=== PATIENT | female | born 1960 | race Two or more races ===

== ENCOUNTER → 2017-11-25 | Outpatient (CLI) | payer BC ==
--- NOTE | 2017-11-25 13:11 | RAD ---
EXAM: Bilateral calcanei, 2 views. HISTORY: Pain. COMPARISON: None. FINDINGS: Frontal and lateral views of both calcanei are obtained. There is no fracture, dislocation or subluxation. There are small left and right plantar spurs. IMPRESSION: Small left greater than right plantar spurs. Electronically signed by: Rosa Mccloud MD (11/25/2017 1:07 PM) [facility]
== END | disposition home or self-care (01) ==
LOC: DXRAD 10:47
PROVIDERS: ATTEND Physician Assistant Medical
DX: M77.51 Other enthesopathy of right foot and ankle (principal)
CPT/HCPCS: 73650

== ENCOUNTER → 2018-03-02 | Outpatient (CLI) | payer BC ==
[~2018-03-02] MED LIST: IOHEXOL 240 MG/ML 50ML VIAL. ONE
[2018-03-02] MEDS: IOHEXOL 300 MG/ML 75 ML VIAL. IV ONE (15:30)
[2018-03-02] MEDS: IOHEXOL 240 MG/ML 50ML VIAL. PO ONE (15:36)
--- NOTE | 2018-03-02 17:02 | RAD ---
CT abdomen and pelvis with contrast 03/02/2018 CLINICAL INDICATION: Leukocytosis, nausea, vomiting. COMPARISON: CT abdomen and pelvis 01/25/2009 TECHNIQUE: Multiple CT images of the abdomen and pelvis were obtained following the intravenous administration of 75 mL Omnipaque 300. *One or more of the following individualized dose reduction techniques were utilized for this examination: 1. Automated exposure control. 2. Adjustment of the mA and/or kV according to patient size. 3. Use of iterative reconstruction technique. FINDINGS: Heart size is normal. Visualized lung bases are clear. The hepatic dome is not included in the [id number]. Moderate diffuse hepatic steatosis. Cholelithiasis in a nondilated gallbladder. Adrenal glands, pancreas and kidneys are unremarkable. Abdominal aorta normal in caliber. Major portal, splenic and visualized superior mesenteric veins are widely patent. Small and large bowel loops are normal in caliber without obstruction. Appendix is normal in appearance. Mild scattered distal colonic diverticula without diverticulitis. No retroperitoneal or mesenteric lymphadenopathy. Mildly distended and unopacified urinary bladder, adnexa unremarkable. Hysterectomy with the vaginal cuff unremarkable. No iliac or inguinal lymphadenopathy. There are no destructive osseous lesions. IMPRESSION: 1. No CT evidence of acute abdominal or pelvic process. 2. Cholelithiasis. 3. Moderate hepatic steatosis. Electronically signed by: Gabriele Ortega MD (03/02/2018 4:59 PM) [id number]
== END | disposition home or self-care (01) ==
LOC: CT 14:01
PROVIDERS: ATTEND Physician Assistant
DX: K80.20 Calculus of gallbladder without cholecystitis without obstruction (principal); K76.0 Fatty (change of) liver, not elsewhere classified; I10 Essential (primary) hypertension
CPT/HCPCS: 74177; Q9966; Q9967

== ENCOUNTER → 2018-03-02 | Outpatient (CLI) | payer BC ==
[2018-03-02 11:30] LABS: BASO % 0 % (0-3); EOS # 0.1 x10^3/uL (0.0-0.7); EOS % 1 % (0-3); HEMATOCRIT 46.3 % (36.0-47.0); HEMOGLOBIN 15.3 g/dL (12.0-15.5); LYMPH # 0.3 x10^3/uL (1.0-4.8); LYMPH % 3 % (24-48); MEAN CORPUSCULAR HEMOGLOBIN 29 pg (25-35); MEAN CORPUSCULAR HGB CONC 33 g/dL (31-37); MEAN CORPUSCULAR VOLUME 89 fL (79-100); MONO # 0.2 x10^3/uL (0.0-1.1); MONO % 1 % (0-9); NEUT # 11.7 x10^3uL (1.8-7.7); NEUT % 95 % (31-73); PLATELET COUNT 298 x10^3/uL (140-400); RED BLOOD COUNT 5.23 x10^6/uL (3.50-5.40); RED CELL DISTRIBUTION WIDTH 14.3 % (11.5-14.5); WHITE BLOOD COUNT 12.3 x10^3/uL (4.0-11.0)
[2018-03-02 11:45] LABS: ALBUMIN 3.5 g/dL (3.4-5.0); ALBUMIN/GLOBULIN RATIO 0.8 (1.0-1.7); CALCIUM 9.1 mg/dL (8.5-10.1); CREATININE 0.8 mg/dL (0.6-1.0); GFR 74.5; TOTAL BILIRUBIN 0.7 mg/dL (0.2-1.0); TOTAL PROTEIN 7.8 g/dL (6.4-8.2)
[2018-03-02 12:36] LABS: SEDIMENTATION RATE 34 (0-25)
== END | disposition home or self-care (01) ==
LOC: PMG 10:58
PROVIDERS: ATTEND Physician Assistant
DX: I10 Essential (primary) hypertension (principal); R10.13 Epigastric pain; R11.2 Nausea with vomiting, unspecified; R51 Headache
CPT/HCPCS: 36415; 80053; 82150; 83690; 84443; 85025; 85651

== ENCOUNTER 2018-03-26 15:50 | Emergency (ER) | payer BC ==
[~2018-03-26] VITALS: Ht 165.1 cm; Wt 75.8 kg
[2018-03-26] MEDS ORDERED: IV NORMAL SALINE 1,000ML 1,000 ML IV SCH (16:30)
[2018-03-26] MEDS ORDERED: KETOROLAC 30 MG/ML VIAL. IV ONE (16:30)
[2018-03-26] MEDS ORDERED: ONDANSETRON PF 4 MG/2 ML VIAL. IV ONE (16:30)
[2018-03-26 16:49] LABS: BASO # 0.1 x10^3/uL (0.0-0.2); BASO % 1 % (0-3); EOS # 0.2 x10^3/uL (0.0-0.7); EOS % 2 % (0-3); HEMATOCRIT 42.2 % (36.0-47.0); HEMOGLOBIN 14.3 g/dL (12.0-15.5); LYMPH # 2.1 x10^3/uL (1.0-4.8); LYMPH % 24 % (24-48); MEAN CORPUSCULAR HEMOGLOBIN 30 pg (25-35); MEAN CORPUSCULAR HGB CONC 34 g/dL (31-37); MEAN CORPUSCULAR VOLUME 88 fL (79-100); MONO # 0.5 x10^3/uL (0.0-1.1); MONO % 6 % (0-9); NEUT # 5.7 x10^3uL (1.8-7.7); NEUT % 67 % (31-73); PLATELET COUNT 268 x10^3/uL (140-400); RED BLOOD COUNT 4.78 x10^6/uL (3.50-5.40); RED CELL DISTRIBUTION WIDTH 14.3 % (11.5-14.5); WHITE BLOOD COUNT 8.5 x10^3/uL (4.0-11.0)
[2018-03-26 16:55] LABS: BACTERIA,URINE FEW /HPF (0-FEW); BILIRUBIN,URINE NEG (NEG); CLARITY,URINE HAZY; COLOR,URINE YELLOW; GLUCOSE,URINE NEG (NEG); NITRITE,URINE NEG (NEG); SQUAMOUS EPITHELIAL CELL,UR MOD /LPF; UROBILINOGEN,URINE 0.2 mg/dL (0.2 mg/dL); WBC,URINE OCC /HPF (0-4)
[2018-03-26 17:01] LABS: ALBUMIN 3.7 g/dL (3.4-5.0); ALBUMIN/GLOBULIN RATIO 0.9 (1.0-1.7); CALCIUM 9.3 mg/dL (8.5-10.1); CREATININE 0.8 mg/dL (0.6-1.0); GFR 74.5; POTASSIUM 3.6 mmol/L (3.5-5.1); TOTAL BILIRUBIN 0.5 mg/dL (0.2-1.0); TOTAL PROTEIN 7.7 g/dL (6.4-8.2)
[2018-03-26] MEDS ORDERED: FAMOTIDINE 20 MG/2 ML VIAL IVP ONE (17:30)
--- NOTE | 2018-03-26 17:44 | PHYS DOC ---
Past History Past Medical History: GERD, Hypertension Past Surgical History: , Hysterectomy Alcohol Use: None Drug Use: None Adult General Chief Complaint Chief Complaint: ABDOMINAL PAIN HPI HPI Patient is a 57 year old female who presents with complaining of epigastric pain for 3 weeks as a constant and sharp pain with addition to her back that gradually getting worse. Patient had outpatient evaluation and diagnosed with gallbladder problem and had EGD 3 days ago before visiting her surgeon tomorrow for scheduling the surgery. She complaining of nausea and constipation without vomiting, fever and chills, chest pain, fever and chills. Review of Systems Review of Systems Constitutional: Denies fever or chills [] Eyes: Denies change in visual acuity, redness, or eye pain [] HENT: Denies nasal congestion or sore throat [] Respiratory: Denies cough or shortness of breath [] Cardiovascular: No additional information not addressed in HPI [] GI: Reports abdominal pain, nausea, denies vomiting, bloody stools or diarrhea [ ] : Denies dysuria or hematuria [] Musculoskeletal: Denies back pain or joint pain [] Integument: Denies rash or skin lesions [] Neurologic: Denies headache, focal weakness or sensory changes [] Endocrine: Denies polyuria or polydipsia [] All other systems were reviewed and found to be within normal limits, except as documented in this note. Current Medications Current Medications Current Medications Medications (Trade) Dose Ordered Sig/[facility] Start Time Stop Time Status Last Admin Dose Admin Ketorolac Tromethamine (Toradol 30mg Vial) 30 mg 1X ONCE 03/26/18 16:30 03/26/18 16:32 DC 03/26/18 16:37 30 MG Ondansetron HCl (Zofran) 4 mg 1X ONCE 03/26/18 16:30 03/26/18 16:32 DC 03/26/18 16:37 4 MG Sodium Chloride 1,000 ml @ 1,000 mls/hr Q1H 03/26/18 16:30 03/26/18 17:29 03/26/18 16:37 1,000 MLS/HR Allergies Allergies Allergies Coded Allergies Type Severity Reaction Last Updated Verified No Known Drug Allergies 03/02/18 No Physical Exam Physical Exam Constitutional: Well developed, well nourished, mild distress, non-toxic appearance. [] HENT: Normocephalic, atraumatic, bilateral external ears normal, oropharynx moist, no oral exudates, nose normal. [] Eyes: PERRLA, EOMI, conjunctiva normal, no discharge. [] Neck: Normal range of motion, no tenderness, supple, no stridor. [] Cardiovascular:Heart rate regular rhythm, no murmur [] Lungs & Thorax: Bilateral breath sounds clear to auscultation [] Abdomen: Bowel sounds normal, soft, no tenderness, no masses, no pulsatile masses. [] Skin: Warm, dry, no erythema, no rash. [] Back: No tenderness, no CVA tenderness. [] Extremities: No tenderness, no cyanosis, no clubbing, ROM intact, no edema. [] Neurologic: Alert and oriented X 3, normal motor function, normal sensory function, no focal deficits noted. [] Psychologic: Affect anxious, judgement normal, mood normal. [] Current Patient Data Vital Signs Vital Signs Date Time Temp Pulse Resp B/P (MAP) Pulse Ox O2 Delivery O2 Flow Rate FiO2 03/26/18 15:50 97.5 90 22 100 Room Air Lab Results Laboratory Tests Test 03/26/18 16:26 03/26/18 16:35 Urine Collection Type Unknown Urine Color Yellow Urine Clarity Hazy Urine pH 6.0 Urine Specific [place] 1.015 Urine Protein Neg (NEG-TRACE) Urine Glucose (UA) Neg mg/dL (NEG) Urine Ketones (Stick) 40 mg/dL (NEG) Urine Blood Mod (NEG) Urine Nitrite Neg (NEG) Urine Bilirubin Neg (NEG) Urine Urobilinogen Dipstick 0.2 mg/dL (0.2 mg/dL) Urine Leukocyte Esterase Neg (NEG) Urine RBC 3-5 /HPF (0-2) Urine WBC Occ /HPF (0-4) Urine Squamous Epithelial Cells Mod /LPF Urine Bacteria Few /HPF (0-FEW) Urine Mucus Mod /LPF White Blood Count 8.5 x10^3/uL (4.0-11.0) Red Blood Count 4.78 x10^6/uL (3.50-5.40) Hemoglobin 14.3 g/dL (12.0-15.5) Hematocrit 42.2 % (36.0-47.0) Mean Corpuscular Volume 88 fL (79-100) Mean Corpuscular Hemoglobin 30 pg (25-35) Mean Corpuscular Hemoglobin Concent 34 g/dL (31-37) Red Cell Distribution Width 14.3 % (11.5-14.5) Platelet Count 268 x10^3/uL (140-400) Neutrophils (%) (Auto) 67 % (31-73) Lymphocytes (%) (Auto) 24 % (24-48) Monocytes (%) (Auto) 6 % (0-9) Eosinophils (%) (Auto) 2 % (0-3) Basophils (%) (Auto) 1 % (0-3) Neutrophils # (Auto) 5.7 x10^3uL (1.8-7.7) Lymphocytes # (Auto) 2.1 x10^3/uL (1.0-4.8) Monocytes # (Auto) 0.5 x10^3/uL (0.0-1.1) Eosinophils # (Auto) 0.2 x10^3/uL (0.0-0.7) Basophils # (Auto) 0.1 x10^3/uL (0.0-0.2) Sodium Level 140 mmol/L (136-145) Potassium Level 3.6 mmol/L (3.5-5.1) Chloride Level 102 mmol/L (98-107) Carbon Dioxide Level 26 mmol/L (21-32) Anion Gap 12 (6-14) Blood Urea Nitrogen 19 mg/dL (7-20) Creatinine 0.8 mg/dL (0.6-1.0) Estimated GFR (Cockcroft-Gault) 74.5 BUN/Creatinine Ratio 24 (6-20) H Glucose Level 99 mg/dL (70-99) Calcium Level 9.3 mg/dL (8.5-10.1) Total Bilirubin 0.5 mg/dL (0.2-1.0) Aspartate Amino Transferase (AST) 20 U/L (15-37) Alanine Aminotransferase (ALT) 41 U/L (14-59) Alkaline Phosphatase 85 U/L (46-116) Troponin I Quantitative < 0.017 ng/mL (0-0.055) Total Protein 7.7 g/dL (6.4-8.2) Albumin 3.7 g/dL (3.4-5.0) Albumin/Globulin Ratio 0.9 (1.0-1.7) L Lipase 239 U/L (73-393) EKG EKG [] Radiology/Procedures Radiology/Procedures [] Course & Med Decision Making Course & Med Decision Making Pertinent Labs reviewed. (See chart for details) Additional patient in ER showed 57-year-old female patient with known history of gallbladder problems presented to ER with epigastric pain for 2 weeks that getting worse. Patient was very anxious in ER and treated with IV fluid, Zofran , Toradol and Pepcid and felt better. She has appointment with her surgeon tomorrow and instructed to follow up with her surgeon. Dragon Disclaimer Dragon Disclaimer This electronic medical record was generated, in whole or in part, using a voice recognition dictation system. Departure Departure: Impression: Primary Impression: Abdominal pain Disposition: HOME, SELF-CARE (at 1741) Condition: IMPROVED Referrals: ZACH TAY (PCP) Patient Instructions: Abdominal Pain Additional Instructions: Follow-up with your surgeon appointment tomorrow Continue home medication CHEPE VICENTE MD Mar 26, 2018 17:44
[2018-03-26] MEDS ORDERED: ACETAMINOPHEN/CODEINE 300/30MG 4TABLET STARTPACK. PO ONE (17:45)
[2018-03-26 17:48] VITALS: BP 154/84
== END 2018-03-26 18:56 | disposition home or self-care (01) ==
LOC: ER 15:50
DX: R10.13 Epigastric pain (principal); K21.9 Gastro-esophageal reflux disease without esophagitis; I10 Essential (primary) hypertension; Z90.710 Acquired absence of both cervix and uterus; Z98.890 Other specified postprocedural states
CPT/HCPCS: 36415; 80053; 81001; 83690; 84484; 85025; 96374; 96375; 99284; J1885; J2405; S0028; J7030

== ENCOUNTER 2018-04-05 02:02 | Emergency (ER) | payer BC ==
[~2018-04-05] VITALS: Ht 157.5 cm; Wt 73.4 kg
[2018-04-05] MEDS ORDERED: HYDROcodone/APAP 5/325MG 1 TAB TABLET PO ONE (02:30)
[2018-04-05] MEDS ORDERED: ONDANSETRON ODT 4 MG TAB.RAPDIS PO ONE (02:30)
--- NOTE | 2018-04-05 02:42 | PHYS DOC ---
Past History Past Medical History: Hypertension Past Surgical History: Cholecystectomy, Alcohol Use: None Drug Use: None Adult General Chief Complaint Chief Complaint: MULTIPLE COMPLAINTS HPI HPI 57-year-old female presents with nausea and abdominal pain. The patient had her gallbladder removed several days ago and has had some intermittent nausea and abdominal pain since. The abdominal pain is an intermittent cramping mostly in the epigastric area but also suprapubic. She is prescribed Zofran. When she took these at 8 PM last night, they didn't seem to help. She started to have pain again around 2:00 this morning she decided to come the emergency room. She did not take an additional dose of her pain medication or Zofran. She is concerned that the nausea being almost every day and is not normal and she is worried about. Patient has not had a bowel movement in 2 days. She was regular prior to her gallbladder disease. She denies fever or chills. She has not had any vomiting dysuria or urinary frequency. Review of Systems Review of Systems Constitutional: Denies fever or chills [] Eyes: Denies change in visual acuity, redness, or eye pain [] HENT: Denies nasal congestion or sore throat [] Respiratory: Denies cough or shortness of breath [] Cardiovascular: No additional information not addressed in HPI [] GI: Epigastric and suprapubic abdominal pain[] : Denies dysuria or hematuria [] Musculoskeletal: Denies back pain or joint pain [] Integument: Denies rash or skin lesions [] Neurologic: Denies headache, focal weakness or sensory changes [] Endocrine: Denies polyuria or polydipsia [] All other systems were reviewed and found to be within normal limits, except as documented in this note. Current Medications Current Medications Current Medications Medications (Trade) Dose Ordered Sig/Les Start Time Stop Time Status Last Admin Dose Admin Acetaminophen/ Hydrocodone Bitart (Lortab 5/325) 1 tab 1X ONCE 04/05/18 02:30 04/05/18 02:31 UNV 04/05/18 02:37 1 TAB Ondansetron HCl (Zofran Odt) 4 mg 1X ONCE 04/05/18 02:30 04/05/18 02:31 UNV 04/05/18 02:37 4 MG Allergies Allergies Allergies Coded Allergies Type Severity Reaction Last Updated Verified No Known Drug Allergies 03/02/18 No Physical Exam Physical Exam Constitutional: Well developed, well nourished, no acute distress, non-toxic appearance. [] HENT: Normocephalic, atraumatic, bilateral external ears normal, oropharynx moist, no oral exudates, nose normal. [] Eyes: PERRLA, EOMI, conjunctiva normal, no discharge. [] Neck: Normal range of motion, no tenderness, supple, no stridor. [] Cardiovascular:Heart rate regular rhythm, no murmur [] Lungs & Thorax: Bilateral breath sounds clear to auscultation [] Abdomen: Epigastric and suprapubic tenderness without rebound or guarding. Incision sites are clean dry and intact. No sign of infection.[] Skin: Warm, dry, no erythema, no rash. [] Back: No tenderness, no CVA tenderness. [] Extremities: No tenderness, no cyanosis, no clubbing, ROM intact, no edema. [] Neurologic: Alert and oriented X 3, normal motor function, normal sensory function, no focal deficits noted. [] Psychologic: Affect normal, judgement normal, mood normal. [] Current Patient Data Vital Signs Vital Signs Date Time Temp Pulse Resp B/P (MAP) Pulse Ox O2 Delivery O2 Flow Rate FiO2 04/05/18 02:37 18 97 Room Air 04/05/18 02:11 98.2 85 EKG EKG [] Radiology/Procedures Radiology/Procedures [] Impressions: Preliminary interpretation: Nonspecific bowel gas pattern, no air-fluid levels, no significant stool burden, surgical clips right upper quadrant. Course & Med Decision Making Course & Med Decision Making Pertinent Labs and Imaging studies reviewed. (See chart for details) The patient's KUB is unremarkable. I believe the patient is very anxious about her condition. I have seen in the past. She was quite anxious about her condition prior surgery. She admits that the medications help with her symptoms , however she is still worried. I have given her Zofran and a [place] in the ED to see if this for symptoms. She already has a follow-up appointment scheduled with her doctor later today. Her urinalysis is negative for infection. [] Dragon Disclaimer Dragon Disclaimer This electronic medical record was generated, in whole or in part, using a voice recognition dictation system. Departure Departure: Referrals: ZACH TAY (PCP) KWAME CASIANO DO Apr 05, 2018 02:42
[2018-04-05 02:56] LABS: BACTERIA,URINE 0 /HPF (0-FEW); BILIRUBIN,URINE NEG (NEG); CLARITY,URINE CLEAR; COLOR,URINE YELLOW; GLUCOSE,URINE NEG (NEG); NITRITE,URINE NEG (NEG); RBC,URINE 0 /HPF (0-2); SQUAMOUS EPITHELIAL CELL,UR OCC /LPF; UROBILINOGEN,URINE 0.2 mg/dL (0.2 mg/dL); WBC,URINE OCC /HPF (0-4)
[2018-04-05 03:35] VITALS: BP 141/73
--- NOTE | 2018-04-05 07:45 | RAD ---
KAREN, 04/05/2018: HISTORY: Constipation, recent surgery There is gas and a moderate amount of stool scattered throughout the colon. No bowel dilatation is evident. Surgical clips are present in the right upper quadrant. There is no evidence organomegaly. IMPRESSION: No acute abnormality is detected. Electronically signed by: Aniceto Cummings MD (04/05/2018 7:42 AM) [facility]
== END 2018-04-05 03:39 | disposition home or self-care (01) ==
LOC: ER 02:02
DX: R10.13 Epigastric pain (principal); I10 Essential (primary) hypertension; R11.0 Nausea; Z90.49 Acquired absence of other specified parts of digestive tract; Z98.890 Other specified postprocedural states
CPT/HCPCS: 74018; 81001; 99285; Q0162

== ENCOUNTER → 2019-01-26 | Outpatient (CLI) | payer BC ==
--- NOTE | 2019-01-26 16:07 | RAD ---
EXAM: AP and lateral views of both knees DATE: 01/26/2019 12:00 AM INDICATION: Bilateral knee pain COMPARISON: 09/07/2013 FINDINGS/ IMPRESSION: 1. No evidence for acute fracture or dislocation of the bilateral knees. 2. No knee joint effusion. 3. Joint spaces are preserved without significant degenerative/proliferative change. Electronically signed by: Hugh Montelongo MD (01/26/2019 4:04 PM) [facility]
== END | disposition home or self-care (01) ==
LOC: DXRAD 08:29
PROVIDERS: ATTEND Registered Nurse
DX: M25.561 Pain in right knee (principal); M25.562 Pain in left knee
CPT/HCPCS: 73560

== ENCOUNTER → 2019-02-23 | Outpatient (CLI) | payer BC, OTHER ==
--- NOTE | 2019-02-25 17:52 | RAD ---
DATE: 02/23/2019 EXAM: MAMMO NEGIN SCREENING BILATERAL HISTORY: Routine screening COMPARISON: 02/17/2018 mammographic exam This study was interpreted with the benefit of Computerized Aided Detection (CAD). Breast Density: SCATTERED The breast parenchyma shows scattered fibroglandular densities. Breast parenchyma level B. FINDINGS: Multiple very small masses are stable. No dominant mass. No suspicious calcification or distortion. IMPRESSION: Stable BI-RADS CATEGORY: 1 NEGATIVE RECOMMENDED FOLLOW-UP: 12M 12 MONTH FOLLOW-UP PQRS compliance statement: Patient information was entered into a reminder system with a target due date in one year for the next mammogram. Mammography is a sensitive method for finding small breast cancers, but it does not detect them all and is not a substitute for careful clinical examination. A negative mammogram does not negate a clinically suspicious finding and should not result in delay in biopsying a clinically suspicious abnormality. "Our facility is accredited by the [employer] Mammography Program."
== END | disposition home or self-care (01) ==
LOC: MAMMO 09:36
PROVIDERS: ATTEND Registered Nurse
DX: Z12.31 Encounter for screening mammogram for malignant neoplasm of breast (principal); N63.20 Unspecified lump in the left breast, unspecified quadrant; N63.10 Unspecified lump in the right breast, unspecified quadrant
CPT/HCPCS: 77063; 77067

== ENCOUNTER → 2020-04-05 | Outpatient (CLI) | payer BC, OTHER ==
--- NOTE | 2020-04-05 11:14 | RAD ---
CT abdomen pelvis without contrast dated 04/05/2020. Comparison made to 03/02/2018. Clinical data indication: Left lower quadrant pain. TECHNIQUE: Contiguous axial imaging the M pelvis performed without the administration of IV or oral contrast. One or more of the following individualized dose reduction techniques were utilized for this examination: 1. Automated exposure control 2. Adjustment of the mA and/or kV according to patient size 3. Use of iterative reconstruction technique findings: Limited images of lung bases are clear.. Heart size within normal limits. No pleural or pericardial effusion. There is diffuse low-density of the liver, consistent with fatty infiltration. No apparent mass. Biliary tree normal in caliber. The gallbladder is surgically absent. Spleen is normal in size. Pancreas, adrenal glands unremarkable. There is a 2 mm calcific stone at the midpole right kidney. No calcific stone on the left. No ureteral stone or hydronephrosis. Focal area of inflammation near the descending colon/sigmoid junction with hazy inflammatory stranding in the paracolonic fat. There are scattered diverticula in the region. No localized perforation or abscess. GI tract is otherwise normal in caliber. Appendix is normal in caliber. No ascites or lymphadenopathy. Images of pelvis show nondistended urinary bladder. Uterus is surgically absent. No significant free fluid or pelvic adenopathy. Evidence of prior ventral hernia repair. Bone windows show no acute findings. Mild lower lumbar spondylosis. IMPRESSION: 1. Findings consistent with acute sigmoid diverticulitis. No localized perforation or abscess at this time. 2. Fatty infiltration of the liver. 3. Right-sided nephrolithiasis, nonobstructive. 4. Status post cholecystectomy and hysterectomy. Electronically signed by: Elliot Horton MD (04/05/2020 11:11 AM) [id number]
== END ==
LOC: PMG 09:35
PROVIDERS: ATTEND Physician Assistant Medical
DX: K57.30 Diverticulosis of large intestine without perforation or abscess without bleeding (principal); K76.0 Fatty (change of) liver, not elsewhere classified; N20.0 Calculus of kidney; M47.816 Spondylosis without myelopathy or radiculopathy, lumbar region; Z90.49 Acquired absence of other specified parts of digestive tract; Z90.710 Acquired absence of both cervix and uterus
CPT/HCPCS: 74176

== ENCOUNTER → 2021-04-03 | Outpatient (CLI) | payer BC, OTHER ==
--- NOTE | 2021-04-03 13:38 | RAD ---
EXAM: ULTRASOUND PELVIS INDICATION: Reason: Left lower quadrant pain, HISTORY OF OVARIAN CYSTS / Spl. Instructions: R/O HERNI A VS OVARIAN CYSTS PER ORDER / History: . COMPARISON: CT study of the abdomen and pelvis dated April 05, 2020. TECHNIQUE: Transabdominal sonography was performed. The patient declined transvaginal exam. FINDINGS: Uterus is surgically absent. Neither ovary is visualized due to overlying bowel gas. No adnexal monica s or cystic masses are seen. No free fluid is apparent. Sonography of the area of clinical concern of the left lower quadrant of the abdomen was performed and no hernia is seen here sonographically. IMPRESSION: Neither ovary is visualized. No hernia is seen. Electronically signed by: Adi Butler MD (04/03/2021 1:35 PM) [id number]
== END ==
LOC: US 09:03
PROVIDERS: ATTEND Nurse Practitioner Family
DX: R10.9 Unspecified abdominal pain (principal); Z90.710 Acquired absence of both cervix and uterus
CPT/HCPCS: 76856